=== PATIENT | female | born 1945 | race Caucasian/White ===

== ENCOUNTER → 2020-11-03 09:59 | Outpatient (REF) | payer MEDICARE, SELFPAY ==
--- NOTE | ~2020-11-03 | NM_ITS ---
Myocardial perfusion study Indication: Chest pain to evaluate for myocardial ischemia Technique: The patient was brought in for a Lexiscan perfusion study on 11/03/2020. Patient performed low-level exercise and was injected 0.4 mg of Lexiscan intravenously. Within a minute of injection, 30 mCi of sestamibi was given intravenously. Images were obtained using the SPECT gamma camera interlaced with the gating device. Images were obtained in supine position. Resting perfusion study was performed on 11/04/2020. Patient was administered 30 mCi of sestamibi intravenously at rest. Images were then obtained in supine position. Images obtained with and without CT attenuation. Total DLP 79 mGy-cm. Images were processed with the software and compared side to side in short axis, horizontal long axis and vertical long axis views. Findings: The stress perfusion study showed non attenuated images show diffusely mildly reduced uptake in the anteroseptal, anterior and anterolateral wall of the LV myocardium. Attenuation corrected images show minimally reduced uptake in the apex of the LV myocardium.. The gated study shows normal LV systolic function with calculated LVEF of 74%. LV cavity is normal in size. The gated study shows normal systolic wall thickening and contraction of segments. Resting study shows non attenuated images show normal uptake of radiotracer in all segments of LV myocardium. Attenuation corrected images show mildly reduced uptake in the distal septum and apex of the LV myocardium. Gating at rest reveals normal systolic wall motion with ejection fraction at 62%. The findings are consistent with findings are highly suggestive of shifting breast attenuation artifact. There is no clear reversible defect noted on attenuated corrected images however on non attenuated images there is reversible defect. NM/NM bryanna perf SPECT rest & str Impression: 1. Myocardial perfusion imaging study shows likely normal myocardial perfusion 2. Gated LVEF is 62% 3. Transient ischemic dilatation not present EKG is nondiagnostic for ischemia
--- NOTE | 2020-11-03 10:00 | CA_ITS ---
Acquisition Time: 2020-11-03 10:13:20 Total Exercise Time: 00:02:00 Test Indications: Chest Pain Medications: LOVASTATIN Protocol: LEXISCAN Max HR: 133 BPM 92% of Pred: 144 BPM Max BP: 174/086 mmHG Max Work Load: 1.0 METS Pharmacological stress test using Lexiscan while Lexiscan while sitting and kicking her feet. Pt tolerated well, denies any anginal sx. Non-diagnostic for ischemia. Nuclear images to follow. Hypertensive response to test. Test reviewed with Dr. Ospina. Referred By: Roscoe Landeros Overread By:
== END ==
LOC: HO.CARD 09:59
PROVIDERS: Visit Provider Internal Medicine Cardiovascular Disease
DX: R07.9 Chest pain, unspecified (principal)
CPT/HCPCS: 78452; 93016; 93017; 93018; A9500; J0280; J2785